=== PATIENT | male | born 1990 | race Caucasian/White ===

== ENCOUNTER 2016-09-23 18:40 | Emergency (ER) | payer OTHER ==
[2016-09-23 18:49] VITALS: BP 145/87; PULSE 50; RESP 16; TEMP 98.1; O2SAT 98
--- NOTE | 2016-09-23 19:09 | EDPHY ---
HPI/HX/ROS/PE/MDM Narrative: CHIEF COMPLAINT: "I might have an infection on my Achilles" HPI: The patient is a 26 y/o male complaining of a wound on the back of his right ankle that appeared last week. He initially thought it was a blister from running, but it did not improve and has become more red in the last couple days. Today, he was "digging at it" and he developed purulent and bloody discharge. He complains of pain at the site, but denies radiating pain or other wounds. He denies pertinent medical history. REVIEW OF SYSTEMS: Aside from elements discussed in the HPI, a comprehensive 10-point review of systems was reviewed and is negative. PMH: Tetanus up-to-date SOCIAL HISTORY: Single. Lives in [place]. PHYSICAL EXAM: General:Patient is alert, in no acute distress. Skin: Normal color. No rash. Warm and dry. 2cm erythematous abscess to right Achilles area with fluctuance, erythema, and tenderness. Extremities: Normal appearance. Full range of motion. Neuro: Oriented x3. Normal motor function. Normal sensory function. ED Course: This is a healthy 26 y/o male who presents with a 2cm diameter abscess with localized erythema to his right ankle. He denies systemic symptoms and is afebrile here. We discussed risks and benefits of I&D and patient requested the procedure. A small quantity of sebaceous drainage was expressed, making this more likely an inflamed sebaceous cyst. He will be discharged on a course of Keflex with referral to PCP as needed for follow up. Standard wound infection return precautions given. He is comfortable with this plan. Procedure: Incision and Drainage abscess. The patient's abscess was located on the right posterior ankle over his Achilles tendon. Risks, benefits, alternatives discussed with the patient and consent obtained. The area was prepped and draped in sterile fashion. The patient received local anesthesia with 1% lidocaine with epinephrine. The abscess was incised with a #11 blade and a small quantity of sebaceous drainage was expressed. The wound was irrigated and dressed. The patient tolerated the procedure well. The procedure was performed by myself. MDM: I think this is likely a blister/sebaceous cyst, but we will place patient on antibiotics as precaution. General Time Seen by Provider: 09/23/16 18:58 Initial Vital Signs: Initial Vital Signs Temperature (C) 36.7 C 09/23/16 18:47 Heart Rate 50 L 09/23/16 18:47 Respiratory Rate 16 09/23/16 18:47 Blood Pressure 145/87 H 09/23/16 18:47 O2 Sat (%) 98 09/23/16 18:47 O2 Delivery Mode Room Air Allergies/Adverse Reactions: No Known Allergies Allergy (Unverified 09/23/16 18:47) Home Medications: Medication Instructions Recorded Cephalexin [Keflex] 500 mg PO TID #21 cap 09/23/16 Departure - Departure Disposition: Home, Routine, Self-Care Clinical Impression: Abscess of ankle, right posterior Condition: Good Instructions: Abscess (ED), Incision and Drainage (ED), Cyst (ED) Additional Instructions: 1. Take Keflex as prescribed. Be sure to complete the entire prescription even if you feel better. 2. Use Tylenol or ibuprofen as directed on the packaging if needed for pain. 3. Avoid running or other activities that could aggravate the area until it heals. 4. Follow up with your primary care provider for symptoms not improved over the next week. 5. Return for any worsening of condition. Referrals: Aftab Rascon MD [Medical Doctor] - As per Instructions Prescriptions: Cephalexin [Keflex] 500 mg PO TID #21 cap Report Scribed for: Isaias Fox Report Scribed by: Alexa Bianchi Date of Report: 09/23/16 Time of Report: 18:59 Physician Review and Approval Statement: Portions of this note were transcribed by an ED scribe. I personally performed the history, physical exam, and medical decision making; and confirm the accuracy of the information in the transcribed note.
== END 2016-09-23 19:22 | disposition home or self-care (01) ==
PROC: 0H9KXZZ Drainage of Right Lower Leg Skin, External Approach (ICD-10-PCS; principal; 2016-09-23)
DX: L02.415 Cutaneous abscess of right lower limb (principal)

== ENCOUNTER → 2017-08-26 | Outpatient (CLI) | payer OTHER | LOC: FIMAGING 18:23 | DX: M25.551 Pain in right hip (principal) ==